=== PATIENT | male | born 1985 | race Caucasian/White ===

== ENCOUNTER 2017-10-30 13:36 | Emergency (ER) | payer SELFPAY ==
[~2017-10-30] VITALS: Ht 185.4 cm; Wt 67.0 kg
[2017-10-30 13:39] VITALS: BP 124/82; PULSE 75; RESP 16; TEMP 98; O2SAT 100
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
[2017-10-30] MEDS ORDERED: IBUP1TAB7 PO (15:10)
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
[2017-10-30] MEDS ORDERED: IBUPROFEN 800 MG TAB PO ONE (15:15)
== END 2017-10-30 15:44 | disposition home or self-care (01) ==
LOC: NEPK 13:36
DX: S59.911A Unspecified injury of right forearm, initial encounter (principal); S50.811A Abrasion of right forearm, initial encounter; W22.8XXA Striking against or struck by other objects, initial encounter
CPT/HCPCS: 73090; 73130; 99283; L3908

== ENCOUNTER 2018-02-25 21:35 | Emergency (ER) | payer SELFPAY ==
[~2018-02-25] VITALS: Ht 185.4 cm; Wt 72.5 kg
[~2018-02-25 21:35] MED LIST: IBUP1TAB7 PO
[2018-02-25 21:46] VITALS: BP 132/70; PULSE 71; RESP 18; TEMP 97.9; O2SAT 100
[2018-02-25] MEDS ORDERED: CEPH-460 PO (22:36)
[2018-02-25] MEDS ORDERED: BACT800T5 PO (22:36)
--- NOTE | 2018-02-25 22:38 | PD ---
HPI Chief Complaint: Skin Problem Time Seen by Provider: 22:26 Travel History International Travel<30 days: No Contact w/Intl Traveler<30days: No Traveled to known affect area: No History of Present Illness HPI 33-year-old male complains of pain in the right forearm associated redness and swelling. 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 Positive subjective fever yesterday. The pain is constant. It is worse with palpation. 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 PFSH Past Medical History Hepatitis: Yes (POSSIBLE HEP C) Immunizations Current: Yes Tetanus Vaccination: < 5 Years Past Surgical History Surgical History: No Previous Surgery Social History Alcohol Use: No Tobacco Use: Yes Substance Use: Yes (recovering) Allergies-Medications (Allergen,Severity, Reaction): Coded Allergies: No Known Allergies (Unverified , 02/25/18) Reported Meds & Prescriptions Reported Meds & Active Scripts Active Ibuprofen 800 Mg Tab 800 Mg PO Q6HR PRN Review of Systems Eyes: No: Blurred Vision HENT: No: Lightheadedness Cardiovascular: No: Irregular Rhythm Respiratory: No: Shortness of Breath Physical Exam Narrative GENERAL: 33-year-old male pleasant well-nourished well-developed no acute distress Vital Signs Date Time Temp Pulse Resp B/P (MAP) Pulse Ox O2 Delivery O2 Flow Rate FiO2 02/25/18 21:46 97.9 71 18 132/70 (90) 100 SKIN: Warm and dry. There is about a 1 cm area of induration and erythema overlying the right forearm with minimal fluctuance. HEAD: Atraumatic. Normocephalic. EYES: Pupils equal and round. No scleral icterus. No injection or drainage. CARDIOVASCULAR: Regular rate and rhythm. RESPIRATORY: No accessory muscle use. Clear to auscultation. Breath sounds equal bilaterally. GASTROINTESTINAL: Abdomen soft, non-tender, nondistended. Hepatic and splenic margins not palpable. MUSCULOSKELETAL: Extremities without clubbing, cyanosis, or edema. No obvious deformities. Data Data Last Documented VS Vital Signs Date Time Temp Pulse Resp B/P (MAP) Pulse Ox O2 Delivery O2 Flow Rate FiO2 02/25/18 21:46 97.9 71 18 132/70 (90) 100 Orders Orders Cephalexin (Keflex) (02/25/18 22:45) Sulfamet-Trimeth Ds 800-160 Mg (Bactrim (02/25/18 22:45) MDM Medical Decision Making Medical Screen Exam Complete: Yes Emergency Medical Condition: Yes Medical Record Reviewed: Yes Differential Diagnosis Abscess, cellulitis, fasciitis Narrative Course Patient has cellulitis. Very small area of abscess presumably. Patient refuses incision and drainage here. We discussed methods for management at home and he is amenable to that. Scripts as well. Diagnosis Primary Impression: Cellulitis and abscess of unspecified site Referrals: Primary Care Physician call for appointment Med/Other Pt SpecificInfo: Prescription(s) given Scripts Sulfamethoxazole-Trimethoprim (Bactrim DS) 800-160 Mg Tab 1 TAB PO BID for Infection, #20 TAB 0 Refills Prov: Luke Dillard MD 02/25/18 Cephalexin (Keflex) 500 Mg Cap 500 MG PO Q8H for Infection for 10 Days, #30 CAP 0 Refills Prov: Luke Dillard MD 02/25/18 Disposition: 01 DISCHARGE HOME Condition: Stable Luke Dillard MD February 25, 2018 22:38
[2018-02-25] MEDS ORDERED: CEPHALEXIN MONOHYDRATE 500 MG CAP PO ONE (22:45)
[2018-02-25] MEDS ORDERED: SULFAMETHOXAZOLE-TRIMETHOPRIM DS 800-160 MG TAB PO ONE (22:45)
== END 2018-02-25 22:45 | disposition home or self-care (01) ==
LOC: NEPC 21:35
DX: L03.90 Cellulitis, unspecified (principal); L02.91 Cutaneous abscess, unspecified; Z72.0 Tobacco use
CPT/HCPCS: 99283

== ENCOUNTER 2018-03-07 13:24 | Emergency (ER) | payer SELFPAY ==
[~2018-03-07] VITALS: Ht 185.4 cm; Wt 72.0 kg
[~2018-03-07 13:24] MED LIST changes: +BACT800T5 PO; +CEPH-460 PO
[2018-03-07 13:34] VITALS: BP 109/54; PULSE 96; RESP 14; TEMP 98.3; O2SAT 98
--- NOTE | 2018-03-07 15:09 | PD ---
HPI Chief Complaint: Wound/Suture/Staple Re-Check Time Seen by Provider: 14:45 Travel History International Travel<30 days: No Contact w/Intl Traveler<30days: No Traveled to known affect area: No History of Present Illness HPI 33-year-old male presents to the ED for evaluation of laceration of the left anterior knee. Sustained 10 days ago by chainsaw accident. Patient was seen at a urgent care and laceration repair was performed. Patient removed the sutures at home last night and is concerned about gaping of the wound. He denies fever, chills, discharge from the wound, redness, warmth, limitations to range of motion of the extremities. He states that he had a dose of IV antibiotic at recent hospital visit for abscess. No treatment attempted at home. Tetanus immunization UTD. PFSH Past Medical History Hepatitis: Yes (POSSIBLE HEP C) Immunizations Current: Yes Social History Alcohol Use: No Tobacco Use: Yes Substance Use: Yes (recovering) Allergies-Medications (Allergen,Severity, Reaction): Coded Allergies: No Known Allergies (Unverified , 02/25/18) Reported Meds & Prescriptions Reported Meds & Active Scripts Active Bactrim DS (Sulfamethoxazole-Trimethoprim) 800-160 Mg Tab 1 Tab PO BID Keflex (Cephalexin) 500 Mg Cap 500 Mg PO Q8H 10 Days Ibuprofen 800 Mg Tab 800 Mg PO Q6HR PRN Review of Systems Except as stated in HPI: all other systems reviewed are Neg Physical Exam Narrative GENERAL: Well-nourished, well-developed white male in no acute distress. SKIN: Focused skin assessment warm/dry. There is a 3 cm laceration over the anterior left knee. The center centimeter of the wound is well granulated but not approximated. No signs of infection. HEAD: Normocephalic. EYES: No scleral icterus. No injection or drainage. NECK: Supple, trachea midline. No JVD or lymphadenopathy. CARDIOVASCULAR: Regular rate and rhythm without murmurs, gallops, or rubs. RESPIRATORY: Breath sounds equal bilaterally. No accessory muscle use. GASTROINTESTINAL: Abdomen soft, non-tender, nondistended. MUSCULOSKELETAL: No cyanosis, or edema. BACK: Nontender without obvious deformity. No CVA tenderness. Data Data Last Documented VS Vital Signs Date Time Temp Pulse Resp B/P (MAP) Pulse Ox O2 Delivery O2 Flow Rate FiO2 03/07/18 13:34 98.3 96 14 109/54 (72) 98 Orders Orders Elias Bandage (03/07/18 14:54) Ed Discharge Order (03/07/18 15:10) [facility] Medical Decision Making Medical Screen Exam Complete: Yes Emergency Medical Condition: Yes Differential Diagnosis Wound dehiscence versus laceration repair versus wound recheck versus wound infection versus other Narrative Course 33-year-old male presents to the ED for evaluation of laceration of the left anterior knee. Sustained 10 days ago by chainsaw accident. Patient was seen at a urgent care and laceration repair was performed. Patient removed the sutures at home last night and is concerned about gaping of the wound. Tetanus simulation UTD. Vitals reviewed. On exam there is a 3 cm wound of the left anterior knee, the middle centimeters gaping open. The edges of the wound are granulating well but not approximated. The wound was irrigated with 1 L normal saline. Steri-Strips and Mastisol were used to loosely approximate the wound. Elias bandage was applied to discourage flexion of the knee. Patient was given detailed wound instructions, we discussed reasons to return to the ED. He indicated understanding of the instructions and is agreeable to care plan. He is stable and discharged home. Procedures Procedure Narrative LACERATION LOCATION: Left anterior knee LENGTH: 2 cm NUMBER OF STITCHES/NATALIA: 0 REPAIR: The wound was copiously irrigated and explored without evidence of foreign body, tendon injury or neurovascular injury. The wound was closed using Steri-Strips and Mastisol. This was a single layer repair. The patient was advised to keep the dressing clean and dry. Patient tolerated the procedure well. Diagnosis Primary Impression: Laceration of left knee Qualified Codes: S81.012D - Laceration without foreign body, left knee, subsequent encounter Additional Impression: Dehiscence of wound of skin Qualified Codes: T81.30XA - Disruption of wound, unspecified, initial encounter Referrals: Primary Care Physician Additional Instructions: Rest, hydrate. You may shower normally. Do not submerge the wound. After bathing pat of wound dry. Allow the wound to air dry for 10-15 minutes. Allow the Steri-Strips to follow-up on their own. Keep the wound covered with Elias bandage while working. Avoid deep squatting or deep flexion of the knee as this can cause the wound to open. Utilize [id number] pain medications, as described on the label, as needed. Follow-up with your primary care provider. Return to the ED for any urgent or emergent medical condition. Disposition: 01 DISCHARGE HOME Condition: Stable Altagracia Vasques March 07, 2018 15:09
== END 2018-03-07 15:16 | disposition home or self-care (01) ==
LOC: NEPK 13:24
DX: T81.30XA Disruption of wound, unspecified, initial encounter (principal); S81.012A Laceration without foreign body, left knee, initial encounter; W29.3XXA Contact with powered garden and outdoor hand tools and machinery, initial encounter
CPT/HCPCS: 12001